=== PATIENT | female | born 1945 | race Caucasian/White ===

== ENCOUNTER 2017-03-26 19:38 | Emergency (ER) | payer MEDICARE, OTHER ==
--- NOTE | 2017-03-26 22:41 | RAD ---
HISTORY: Fall, forehead laceration, head trauma COMPARISONS: None TECHNIQUE: Multiple contiguous axial CT scans were obtained of the head without intravenous contrast. FINDINGS: The study is limited by patient motion artifact. HEMORRHAGE/INFARCT: There is no hemorrhage or acute infarct. MASSES/SHIFT: There is no mass or shift. EXTRA-AXIAL SPACES: There are no extra-axial fluid collections. SULCI AND VENTRICLES: The sulci and ventricles are normal in size and position for the patient's stated age. CEREBRUM: There are no focal parenchymal abnormalities. BRAINSTEM: There are no focal parenchymal abnormalities. CEREBELLUM: There are no focal parenchymal abnormalities. VESSELS: The vessels are grossly normal. PARANASAL SINUSES: There are-fluid levels within the sphenoid sinus and maxillary sinuses bilaterally. ORBITS: The orbits are unremarkable. BONES AND SOFT TISSUE: No bone or soft tissue abnormalities are noted. OTHER: None IMPRESSION: NO ACUTE INTRACRANIAL PATHOLOGY. MILD SINUS MUCOSAL INFLAMMATORY DISEASE, WITH AIR-FLUID LEVELS IN THE SPHENOID SINUS AND MAXILLARY SINUSES BILATERALLY. IN THE CORRECT CLINICAL SETTING, THIS MAY REPRESENT ACUTE SINUSITIS
[2017-03-27] MEDS ORDERED: Cephalexin CAP* 500 MG PO ONE (01:18)
[2017-03-27 01:46] VITALS: BP 103/62
--- NOTE | 2017-03-27 21:57 | ED ---
Laceration/Wound HPI - HPI Summary HPI Summary: Patient presents to ED s/p mechanical fall by tripping over a cat and falling onto a corner with a laceration to the left side of the frontal/samaritan on the left side. Fall occurred 3 hours ago. Denies confusion, LOC, memory loss or behavioral changes, or N/V. Denies other symptoms. Laceration is 3cm in length , depth to the fascia of the skull and width is 1cm. She denies visual disturbances and is ambulating without problems. - History of Current Complaint Stated Complaint: HEAD LAC Time Seen by Provider: 03/26/17 23:34 Hx Obtained From: Patient Onset/Duration: Sudden Onset Aggravating: Nothing Alleviating: Nothing Timing: Constant Onset Severity: Moderate Current Severity: Moderate Pain Intensity: 5 Pain Scale Used: 0-10 Numeric Associated Signs & Symptoms: Negative - Allergy/Home Medications Allergies/Adverse Reactions: Allergies Allergy/AdvReac Type Severity Reaction Status Date / Time Chlorine Allergy Unknown Verified 03/26/17 19:44 Reaction Details Penicillins [PCN] Allergy Unknown Verified 03/26/17 19:44 Reaction Details Sulfa Antibiotics Allergy Unknown Verified 03/26/17 19:44 Reaction Details PMH/Surg Hx/FS Hx/Imm Hx Previously Healthy: Yes - Surgical History Surgery Procedure, Year, and Place: RIGHT WRIST FOR CARPAL TUNNEL AND FX, TONSILECTOMY CHILD - Immunization History Hx Pertussis Vaccination: No Immunizations Up to Date: Unable to Obtain/Confirm Infectious Disease History: No Infectious Disease History: Denies: Traveled Outside the [place] in Last 30 Days - Social History Occupation: Employed Part-time Lives: With Family Alcohol Use: None Hx Substance Use: No Substance Use Type: Reports: None Hx Tobacco Use: Yes Smoking Status (MU): Current Every Day Smoker Review of Systems Constitutional: Negative Eyes: Negative Cardiovascular: Negative Respiratory: Negative Positive: no symptoms reported, see HPI Positive: Other - 3cm laceration to the left frontal temporal area Neurological: Negative Psychological: Normal All Other Systems Reviewed And Are Negative: Yes Physical Exam Triage Information Reviewed: Yes Vital Signs On Initial Exam: Initial Vitals Temp Pulse Resp BP Pulse Ox 98.8 F 82 18 113/73 100 03/26/17 19:44 03/26/17 19:44 03/26/17 19:44 03/26/17 19:44 03/26/17 19:44 Vital Signs Reviewed: Yes Appearance: Positive: Well-Appearing, Well-Nourished Skin: Positive: Warm, Skin Color Reflects Adequate Perfusion, Other - 3cm laceration to the left frontal temporal area Head/Face: Positive: Normal Head/Face Inspection Eyes: Positive: Normal, EOMI, RAFIA, Conjunctiva Clear Neck: Positive: Supple, No Lymphadenopathy Respiratory/Lung Sounds: Positive: Clear to Auscultation, Breath Sounds Present Cardiovascular: Positive: Normal, RRR, Pulses are Symmetrical in both Upper and Lower Extremities Musculoskeletal: Positive: Normal, Strength/ROM Intact Neurological: Positive: Alert, Oriented to Person Place, Time, Speech Normal Psychiatric: Positive: Normal AVPU Assessment: Alert - Haylee Coma Scale Best Eye Response: 4 - Spontaneous Best Motor Response: 6 - Obeys Commands Best Verbal Response: 5 - Oriented Procedures - Laceration/Wound Repair 1 Location: head Description: Linear Anesthesia: Local, 1.0% Betadine Prep?: No Laceration/Wound Explored: clean Closure: Single Layer Debridement: minimal Suture Type: Prolene Number of Sutures: 11 Layer Closure?: No Sterile Dressing Applied?: No - gauze wrapped Diagnostics - Vital Signs Vital Signs Temp Pulse Resp BP Pulse Ox 03/27/17 01:40 97.9 F 64 16 103/62 03/27/17 01:37 66 103/62 99 03/27/17 01:30 64 85/52 96 03/27/17 01:00 60 93/56 96 03/27/17 00:30 61 93/49 97 03/27/17 00:01 92/51 03/27/17 00:00 65 98 03/26/17 23:50 64 96 03/26/17 23:41 63 98 03/26/17 23:39 136/53 03/26/17 21:50 98.9 F 68 16 94/51 95 03/26/17 19:44 98.8 F 82 18 113/73 100 - Laboratory Lab Statement: Any lab studies that have been ordered have been reviewed, and results considered in the medical decision making process. Laceration Repair Course/Dx - Course Course Of Treatment: Fall occurred 3 hours prior to arrival. Denies confusion, LOC, memory loss or behavioral changes, or N/V. Denies other symptoms. Laceration is 3cm in length, depth to the fascia of the skull and width is 1cm. She denies visual disturbances and is ambulating without problems. IMPRESSION : NO ACUTE INTRACRANIAL PATHOLOGY. MILD SINUS MUCOSAL INFLAMMATORY DISEASE, WITH AIR-FLUID LEVELS IN THE SPHENOID SINUS AND. MAXILLARY SINUSES BILATERALLY. IN THE CORRECT CLINICAL SETTING, THIS MAY REPRESENT ACUTE. SINUSITIS. Laceration repaired with 11 sutures. Patient tolerated well. Bandaged. Return for suture removal in 5-6 days. Keflex given for open wound. - Differential Dx Differental Diagnoses: Laceration, Puncture Wound, Tendon Laceration - Clinical Impression Provider Diagnoses: Laceration of forehead Discharge - Discharge Plan Condition: Stable Disposition: HOME Prescriptions: Cephalexin CAP* [Keflex CAP*] 500 mg PO QID #20 cap MDD 4 Cephalexin CAP* [Keflex CAP*] 500 mg PO QID #20 cap MDD 4 Patient Education Materials: Laceration (ED), Head Injury (ED) Referrals: No Primary Care Phys,NOPCP [Primary Care Provider] - Additional Instructions: Follow up with PCP Stitches removal in 5-6 days. If you develop signs of infection such as redness, worsening swelling, drainage from the area or you develop a fever- come back to ED right away. Images - Images Head: 1 - 3cm laceration in length; 1cm width
== END 2017-03-27 01:40 | disposition home or self-care (01) ==
LOC: ED 19:38
DX: S01.81XA Laceration without foreign body of other part of head, initial encounter (principal); W19.XXXA Unspecified fall, initial encounter; Y93.9 Activity, unspecified; Y92.9 Unspecified place or not applicable; Y99.9 Unspecified external cause status
CPT/HCPCS: 12013; 70450; 99283; A9270-GY

== ENCOUNTER 2017-04-03 15:39 | Emergency (ER) | payer MEDICARE, OTHER ==
[2017-04-03 15:53] VITALS: BP 103/51
--- NOTE | 2017-04-03 15:58 | ED ---
Laceration/Wound HPI - HPI Summary HPI Summary: 71 F presents for suture removal for head laceration last week. The sutures have been in 7 days. There are 11 sutures in forehead. She denies any fever or spreading redness. - History of Current Complaint Stated Complaint: STITCHES REMOVED Time Seen by Provider: 04/03/17 15:46 Pain Intensity: 0 - Allergy/Home Medications Allergies/Adverse Reactions: Allergies Allergy/AdvReac Type Severity Reaction Status Date / Time Chlorine Allergy Unknown Verified 04/03/17 15:49 Reaction Details Penicillins [PCN] Allergy Unknown Verified 04/03/17 15:49 Reaction Details Sulfa Antibiotics Allergy Unknown Verified 04/03/17 15:49 Reaction Details PMH/Surg Hx/FS Hx/Imm Hx Endocrine/Hematology History: Denies: Hx Anticoagulant Therapy Cardiovascular History: Reports: Hx Hypertension - Surgical History Surgery Procedure, Year, and Place: RIGHT WRIST FOR CARPAL TUNNEL AND FX, TONSILECTOMY CHILD Infectious Disease History: Denies: Traveled Outside the [place] in Last 30 Days - Family History Known Family History: Positive: Cardiac Disease - Social History Alcohol Use: None Hx Substance Use: No Substance Use Type: Reports: None Hx Tobacco Use: Yes Smoking Status (MU): Current Every Day Smoker Review of Systems Negative: Fever Negative: Chest Pain Negative: Shortness Of Breath Positive: Other - suture removal All Other Systems Reviewed And Are Negative: Yes Physical Exam Triage Information Reviewed: Yes Vital Signs On Initial Exam: Initial Vitals Temp Pulse Resp BP Pulse Ox 97.8 F 69 17 103/51 98 04/03/17 15:42 04/03/17 15:42 04/03/17 15:42 04/03/17 15:42 04/03/17 15:42 Vital Signs Reviewed: Yes Appearance: Positive: Well-Appearing Skin: Positive: Warm, Dry, Other - 11 sutures in healing laceration on forehead Head/Face: Positive: Normal Head/Face Inspection Eyes: Positive: Normal, EOMI, RAFIA, Conjunctiva Clear ENT: Positive: Normal ENT inspection, Pharynx normal, TMs normal Respiratory/Lung Sounds: Positive: Clear to Auscultation, Breath Sounds Present Cardiovascular: Positive: Normal, RRR Diagnostics - Vital Signs Vital Signs Temp Pulse Resp BP Pulse Ox 04/03/17 15:42 97.8 F 69 17 103/51 98 - Laboratory Lab Statement: Any lab studies that have been ordered have been reviewed, and results considered in the medical decision making process. Laceration Repair Course/Dx - Course Course Of Treatment: 71 F presents for suture removal for head laceration last week. The sutures have been in 7 days. There are 11 sutures in forehead which removed and would looks to be healing well. Patient understands and agrees with plan - Differential Dx Differental Diagnoses: Healing Wound, Suture Removal - Clinical Impression Provider Diagnoses: Visit for suture removal Discharge - Discharge Plan Condition: Good Disposition: HOME Patient Education Materials: Stitches Removal (ED) Referrals: No Primary Care Phys,NOPCP [Primary Care Provider] - Additional Instructions: Apply sunscreen and lotion to area Return to ED if develop any signs of infection such as fever, spreading redness , or erythema or any new or worsening symptoms.
== END 2017-04-03 16:00 | disposition home or self-care (01) ==
LOC: ED 15:39
DX: Z48.02 Encounter for removal of sutures (principal); F17.210 Nicotine dependence, cigarettes, uncomplicated
CPT/HCPCS: 99281